=== PATIENT | female | born 1965 | race Hispanic/Latino ===

== ENCOUNTER 2017-11-07 17:01 | Emergency (ER) | payer MEDICARE ==
[~2017-11-07 17:01] MED LIST: BECL8.7A5 IH; CYCL10 PO; ELET20TA2 PO; FAMO20TA8 PO; FLUT110HFA IH; FLUT9.9S16 NS; MECL-111 PO; METF-526 PO; METO50TA18 PO; PHENERGAN TP; ROSU20TA PO; SERT100T PO; TRIAMCINOLON TP
[2017-11-07] MEDS ORDERED: DEXAMETHASONE SOD PHOSPHATE 10MG/ML 1ML VIAL ONE (17:42)
== END 2017-11-07 18:50 | disposition home or self-care (01) ==
LOC: EDH 17:01
DX: K12.0 Recurrent oral aphthae (principal); T78.49XA Other allergy, initial encounter; E78.5 Hyperlipidemia, unspecified; I10 Essential (primary) hypertension; Z88.6 Allergy status to analgesic agent; Z88.0 Allergy status to penicillin; X58.XXXA Exposure to other specified factors, initial encounter
CPT/HCPCS: 96372; 99283; J1100

== ENCOUNTER → 2020-04-08 | Outpatient (CLI) | payer MEDICARE ==
[~2020-04-08] MED LIST changes: +IOHEXOL 350 MG/ML 100ML INFUS..BTL IV ONE; -MECL-111 PO; +MECL-160 PO; -ROSU20TA PO; +ROSU20TA23 PO
== END | disposition home or self-care (01) ==
LOC: RAH 09:32
PROVIDERS: ATTEND Urology
DX: K42.9 Umbilical hernia without obstruction or gangrene (principal); K80.20 Calculus of gallbladder without cholecystitis without obstruction
CPT/HCPCS: 74178; Q9967